=== PATIENT | male | born 1960 | race Caucasian/White ===

== ENCOUNTER 2016-07-20 20:28 | Emergency (ER) | payer OTHER ==
[~2016-07-20] VITALS: Ht 162.6 cm; Wt 65.0 kg
[2016-07-20 20:36] VITALS: BP 177/83; PULSE 109; RESP 22; TEMP 98.9; O2SAT 96
[2016-07-20 20:45] VITALS: RESP 24; O2SAT 96
[2016-07-20] MEDS ORDERED: LORazepam 2 MG/ML VIAL IM ONE (20:45)
[2016-07-20] MEDS ORDERED: HALOPERIDOL LACTATE 5 MG/ML AMP IM ONE (20:45)
--- NOTE | 2016-07-20 20:50 | PD ---
HPI Chief Complaint: Suicidal Ideation Time Seen by Provider: 20:33 Travel History International Travel<30 days: No Contact w/Intl Traveler<30days: No History of Present Illness HPI 56-year-old male arrives as a Shepherd act. Unfortunately he recently with his girlfriend. He now faces potential loss of housing. He is also concerned about his cat. He has verbalized threats to her friend and family that he feels suicidal and intends to walk her heart of a train. The family is quite concerned that the patient is sufficiently motivated to follow through with his stated plan. Upon arrival to the ER he became markedly agitated cursing and threatening staff. 5 security officers were required to restrain the patient. Locked restraints Ativan and Haldol were administered on arrival. An IV in the proximal right arm was placed as well. [facility] Past Medical History Medical History: Unable to Obtain Past Surgical History Surgical History: Unable to Obtain Social History Alcohol Use: No Tobacco Use: No (unable to determine 2/2 imminent threat to self and others) Allergies-Medications (Allergen,Severity, Reaction): Coded Allergies: UNOBTAINABLE (Unverified , 07/20/16) severe agitation, uncooperate Review of Systems ROS Limitations: Clinical Condition, Uncooperative Physical Exam Narrative GENERAL: 56-year-old male belligerent and agitated reasonably well-nourished SKIN: Warm and dry. HEAD: Atraumatic. Normocephalic. EYES: Pupils equal and round. No scleral icterus. No injection or drainage. ENT: No nasal bleeding or discharge. Mucous membranes pink and moist. NECK: Trachea midline. No JVD. CARDIOVASCULAR: Regular rate and rhythm. No murmur appreciated. RESPIRATORY: No accessory muscle use. Clear to auscultation. Breath sounds equal bilaterally. GASTROINTESTINAL: Abdomen soft, non-tender, nondistended. Hepatic and splenic margins not palpable. MUSCULOSKELETAL: No obvious deformities. No clubbing. No cyanosis. No edema. NEUROLOGICAL: Awake and alert. No obvious cranial nerve deficits. Motor grossly within normal limits. Normal speech. PSYCHIATRIC: Suicidal ideation verbalized to friends on record of Shepherd act form. Patient threatened to harm providers and security personnel after release from the hospital. Racist slurs were also pronounced. Data Data Last Documented VS Vital Signs Date Time Temp Pulse Resp B/P Pulse Ox O2 Delivery O2 Flow Rate FiO2 07/20/16 20:45 24 96 Room Air 07/20/16 20:36 98.9 109 177/83 Orders Complete Blood Count With Diff (07/20/16 20:37) Comprehensive Metabolic Panel (07/20/16 20:37) Drug Screen, Random Urine (07/20/16 20:37) Alcohol (Ethanol) (07/20/16 20:37) Psych Screen (07/20/16 20:37) Oximetry (07/20/16 20:41) Cath For Specimen (07/20/16 20:41) Salicylates (Aspirin) (07/20/16 20:41) Tylenol (Acetaminophen) (07/20/16 20:41) Haloperidol Inj (Haldol Inj) (07/20/16 20:45) Lorazepam Inj (Ativan Inj) (07/20/16 20:45) Restraints Violent (07/20/16 20:41) Labs Laboratory Tests Test 07/20/16 20:45 White Blood Count 10.8 TH/MM3 Red Blood Count 5.22 MIL/MM3 Hemoglobin 17.1 GM/DL Hematocrit 49.7 % Mean Corpuscular Volume 95.1 FL Mean Corpuscular Hemoglobin 32.8 PG Mean Corpuscular Hemoglobin 34.5 % Concent Red Cell Distribution Width 13.0 % Platelet Count 251 TH/MM3 Mean Platelet Volume 7.4 FL Neutrophils (%) (Auto) 42.5 % Lymphocytes (%) (Auto) 45.9 % Monocytes (%) (Auto) 8.5 % Eosinophils (%) (Auto) 2.2 % Basophils (%) (Auto) 0.9 % Neutrophils # (Auto) 4.6 TH/MM3 Lymphocytes # (Auto) 4.9 TH/MM3 Monocytes # (Auto) 0.9 TH/MM3 Eosinophils # (Auto) 0.2 TH/MM3 Basophils # (Auto) 0.1 TH/MM3 CBC Comment DIFF FINAL Differential Comment Sodium Level 140 MEQ/L Potassium Level 4.2 MEQ/L Chloride Level 102 MEQ/L Carbon Dioxide Level 21.3 MEQ/L Anion Gap 17 MEQ/L Blood Urea Nitrogen 10 MG/DL Creatinine 1.34 MG/DL Estimat Glomerular Filtration 55 ML/MIN Rate Random Glucose 96 MG/DL Calcium Level 9.6 MG/DL Total Bilirubin 1.0 MG/DL Aspartate Amino Transf 29 U/L (AST/SGOT) Alanine Aminotransferase 26 U/L (ALT/SGPT) Alkaline Phosphatase 108 U/L Total Protein 9.7 GM/DL Albumin 4.6 GM/DL Salicylates Level 3.0 MG/DL Urine Opiates Screen NEG Acetaminophen Level LESS THAN 2.0 MCG/ML Urine Barbiturates Screen NEG Urine Amphetamines Screen NEG Urine Benzodiazepines Screen NEG Urine Cocaine Screen NEG Urine Cannabinoids Screen NEG Ethyl Alcohol Level 263 MG/DL MDM Medical Decision Making Medical Screen Exam Complete: Yes Emergency Medical Condition: Yes Medical Record Reviewed: Yes Interpretation(s) CBC & BMP Diagram 07/20/16 20:45 LFTs normal U Tox negative APAP/ASA negative EtOH 263 Differential Diagnosis Altered mental status/psychosis due to infection/environmental exposure/ metabolic abnormality, polypharmacy, alcohol abuse/intoxication, illicit or prescribed drug abuse, malingering/secondary gain, non-organic psychiatric disease Narrative Course The history of present illness, ROS, physical exam, review of records and medical workup performed for today's visit have reasonably safely excluded organic etiologies for the patient's presenting complaint. We will continue to monitor the patient carefully in the ER until time of evaluation by the psychiatry service. We are available for any additional medical assistance if needed during the patient's ER course. Disposition per discretion of psychiatry is appreciated. Diagnosis Primary Impression: Suicidal intent Additional Impressions: Alcohol intoxication Qualified Code: F10.129 - Alcohol intoxication, with unspecified complication Agitation requiring sedation protocol Admitting Information Admitting Physician Requests: Observation Melvin Jaeger MD Jul 20, 2016 20:50
[2016-07-20 21:32] LABS: AUTOMATED NEUTROPHIL # 4.6 TH/MM3 (1.8-7.7); BASOPHIL # 0.1 TH/MM3 (0-0.2); BASOPHIL % 0.9 % (0.0-2.0); EOSINOPHIL # 0.2 TH/MM3 (0-0.4); EOSINOPHIL % 2.2 % (0.0-4.0); HEMATOCRIT 49.7 % (39.0-51.0); HEMO FLAGS DIFF FINAL; LYMPH % 45.9 % (9.0-44.0); LYMPHOCYTE # 4.9 TH/MM3 (1.0-4.8); MEAN CELL VOLUME 95.1 FL (80.0-100.0); MEAN CORPUSCULAR HEMOGLOBIN 32.8 PG (27.0-34.0); MEAN CORPUSCULAR HGB CONC 34.5 % (32.0-36.0); MONO % 8.5 % (0.0-8.0); NEUT % 42.5 % (16.0-70.0); PLATELET COUNT 251 TH/MM3 (150-450); RED BLOOD COUNT 5.22 MIL/MM3 (4.50-5.90); WHITE BLOOD COUNT 10.8 TH/MM3 (4.0-11.0)
[2016-07-20 21:40] LABS: AMPHETAMINE, URINE NEG (NEG); BARBITURATES, URINE NEG (NEG); COCAINE, URINE NEG (NEG)
[2016-07-20 22:07] LABS: ALKALINE PHOSPHATASE 108 U/L (45-117); ALT (GPT) 26 U/L (12-78); ANION GAP 17 MEQ/L (5-15); AST (GOT) 29 U/L (15-37); BICARBONATE 21.3 MEQ/L (21.0-32.0); BLOOD UREA NITROGEN 10 MG/DL (7-18); CHLORIDE 102 MEQ/L (98-107); GLOMERULAR FILTRATION RATE 55 ML/MIN (>89); POTASSIUM 4.2 MEQ/L (3.5-5.1); SODIUM (NA) 140 MEQ/L (136-145)
[2016-07-21 01:06] VITALS: BP 130/65; PULSE 78; RESP 20; O2SAT 98
[2016-07-21 03:56] VITALS: BP 126/71; PULSE 78; RESP 18; TEMP 97.5; O2SAT 99
[2016-07-21 07:15] VITALS: BP 124/79; PULSE 86; RESP 18
[2016-07-21 10:49] VITALS: BP 133/84; PULSE 98; RESP 18; O2SAT 96
--- NOTE | 2016-07-21 13:15 | PD.CONS ---
Provisional Diagnosis Admission Date [place]. Acute alcohol intoxication, alcohol-induced mood disorder History of Present Illness Service Psychiatry Consult Requested By Primary Care Physician Unknown HPI The patient is a 56 years old man, domiciled with girlfriend, employed , without any previous psychiatric history, no previous suicide attempts, no previous psychiatric hospitalizations, alcohol use disorder, no significant medical history, was brought under Shepherd act after making a suicidal statement in the context of breaking with girlfriend and acute alcohol intoxication. On arrival BAL was 263. On psychiatric evaluation patient is now clinically sober , calm and cooperative, patient denies that he wanted to kill himself, he was just upset "because I was drunk and after having an argument with my girlfriend ". Patient denies depressive symptoms, denies anxiety, denies perceptual disturbances, denies daniel and psychosis. He denies suicidal or homicidal ideation. He denies visual and auditory hallucinations. On longitudinal observation no mood or behavioral dysregulation has been observed or reported. Patient is oriented 3, he reports occasional use of alcohol and denies the use of illicit drugs. Past Family Social History Coded Allergies: UNOBTAINABLE (Unverified , 07/20/16) severe agitation, uncooperate Physical Exam Vital Signs Vital Signs Date Time Temp Pulse Resp B/P Pulse Ox O2 Delivery O2 Flow Rate FiO2 07/21/16 10:49 98 18 133/84 96 Room Air 07/21/16 03:56 97.5 Mental Status Examination Speech: Unremarkable Orientation: x3 Memory: Unremarkable Thought Process: Logical Thought Content: Unremarkable Hallucination Type: None Attention and Concentration: Good Suicidal Ideation: No Homicidal Ideation: No Previous Homicide Attempts: No Judgement: WNL Affect: Good Mood: Appropriate Motor Activity: Normal gait Assessment & Plan Problem List: (1) Alcohol abuse with alcohol-induced mood disorder Assessment & Plan: On psychiatric evaluation the patient does not present or report any symptomatology of depression, anxiety, daniel or psychosis. He does not report any suicidal or homicidal ideation, he denies visual and auditory listening. Recent suicidal statement, erratic behavior was most probably secondary to acute alcohol intoxication, on arrival to the ER BAL was 263. Patient is now clinically sober, does not meet criteria for psychiatric admission at this moment. Detox/rehabilitation was offered to the patient, but he declined. Shepherd act will be lifted. ICD Code: F10.14 Assessment & Plan Estimated LOS: days Conrad Palomino MD Jul 21, 2016 13:15
== END 2016-07-21 17:17 | disposition home or self-care (01) ==
LOC: NEPC 20:28 → NEPJ 07-21 17:17
DX: F10.129 Alcohol abuse with intoxication, unspecified (principal); R45.851 Suicidal ideations
CPT/HCPCS: 80053; 80307; 80329; 85025; 96372; 99284; J1630; J2060; 80320; G0480